=== PATIENT | female | born 1995 | race African-American/Black ===

== ENCOUNTER 2018-12-09 21:27 | Emergency (ER) | payer OTHER | END 2018-12-10 01:39 | disposition home or self-care (01) | LOC: JER 12-10 01:39 | PROC: 3E02329 Introduction of Other Anti-infective into Muscle, Percutaneous Approach (ICD-10-PCS; principal; 2018-12-09) | DX: O26.891 Other specified pregnancy related conditions, first trimester (principal); R10.30 Lower abdominal pain, unspecified; O99.011 Anemia complicating pregnancy, first trimester; Z3A.01 Less than 8 weeks gestation of pregnancy ==

== ENCOUNTER 2019-07-20 11:10 | Inpatient (IN) | payer OTHER ==
[2019-07-20] MEDS ORDERED: ELECTROLYTE-148 SOLN 500 ML IV ONE (12:00)
[2019-07-20] MEDS ORDERED: CITRIC ACID/SODIUM CITRATE 30 ML UNIT-DOSE CUP PO ONE (12:00)
[2019-07-20 12:03] LABS: BASO % 0.4 % (0-2.0); EOS % 0.7 % (0-4.5); HEMATOCRIT 35.8 % (32.4-45.2); HEMOGLOBIN 11.8 GM/dL (10.7-15.3); LYMPH % 18.9 % (8-40); MCHC 33.1 g/dl (32.0-36.0); MEAN CELL VOLUME 84.6 fl (80-96); MEAN PLT VOLUME 8.1 fl (7.5-11.1); MONO % 5.5 % (3.8-10.2); NEUT % 74.5 % (42.8-82.8); PLATELET COUNT 285 K/MM3 (134-434); RBC 4.23 M/mm3 (3.60-5.2); RDW 14.9 % (11.6-15.6); WHITE BLOOD COUNT 8.1 K/mm3 (4.0-10.0)
[2019-07-20 12:11] VITALS: BMI 31.9
[2019-07-20 12:20] LABS: INR 0.98 (0.83-1.09); PROTHROMBIN TIME (PATIENT) 11.6 SEC (9.7-13.0)
[2019-07-20 12:22] LABS: ACTIVATED PTT 31.4 SECONDS (25.2-36.5)
[2019-07-20 12:32] LABS: CALCIUM 8.9 mg/dL (8.5-10.1); CREATININE 0.8 mg/dL (0.55-1.3)
[2019-07-20] MEDS ORDERED: ELECTROLYTE-148 SOLN 1,000 ML IV SCH (13:00)
[2019-07-20] MEDS ORDERED: morphine SULFATE/PF 0.5 MG/ML (2cc Syringe - QUVA) ONE (13:21)
[2019-07-20] MEDS ORDERED: ePHEDrine SULFATE 50 MG/1 ML AMPULE ONE (13:23)
--- NOTE | 2019-07-20 13:33 | HP ---
<Zhang Hilario - Last Filed: 07/20/19 16:45> Past Medical History - Primary Care Physician PCP:: Estefany Mims MD - Admission Chief Complaint: Repeat section History of Present Illness: 24yo P2 admitted at 39w4d for repeat C section. History Source: Patient Limitations to Obtaining History: No Limitations - Past Medical History ...: 4 ...Para: 2 ...Term: 1 ...: 1 ...Spon : 0 ...Induced : 0 ...Multiple Gestation: 0 ...LMP: 10/16/18 ... Weeks Gestation by Dates: 39.4 ...EDC by Dates: 07/23/19 ...EDC by Sono: 07/28/19 - Past Surgical History Past Surgical History: Yes: Hx Myomectomy: No Hx Transabdominal Cerclage: No - Smoking History Smoking history: Never smoked Have you smoked in the past 12 months: No - Alcohol/Substance Use Hx Alcohol Use: No Home Medications - Allergies Allergies/Adverse Reactions: Allergies Allergy/AdvReac Type Severity Reaction Status Date / Time No Known Allergies Allergy Verified 07/20/19 11:56 - Home Medications Home Medications: Ambulatory Orders Prenat Vit 17/Iron/Folic/Om3,6 [Elite-Ob 400 Capsule] 1 each PO DAILY #30 capsule 12/10/18 Ferrous Sulfate 1 tab PO BID 07/04/19 Review of Systems - Review of Systems Constitutional: reports: No Symptoms Eyes: reports: No Symptoms Cardiovascular: reports: No Symptoms Respiratory: reports: No Symptoms Gastrointestinal: reports: No Symptoms Genitourinary: reports: No Symptoms Physical Exam - Maternity Vital Signs: Vital Signs Temperature 98.3 F 07/20/19 12:00 Pulse Rate 100 H 07/20/19 12:00 Respiratory Rate 20 07/20/19 12:00 Blood Pressure 114/57 L 07/20/19 12:00 O2 Sat by Pulse Oximetry (%) Constitutional: Yes: Well Nourished, No Distress Eyes: Yes: WNL HENT: Yes: WNL Cardiovascular: Yes: WNL Lungs: Clear to auscultation - Abdominal Exam/OB Fundal Height: 39 Number of Fetuses: Single Presentation: Vertex Contractions: No Accelerations: Uniform - Vaginal Exam/OB Vaginal Bleediing: No Speculum Exam: No Amniotic Membrane Status: Intact Amniotic Fluid: Yes: Clear Presentation: Vertex/Position Station: -2 - Physical Exam Musculoskeletal: Yes: WNL Extremities: Yes: WNL Integumentary: Yes: WNL - Labs Lab Results: GIL HERNANDEZ 07/20/19 11:50 07/20/19 11:50 Assessment/Plan 24 P admitted at 39.4 days for repeat C section heart 130 with moderate variability with no contractions <Haleigh Hightower - Last Filed: 07/20/19 17:48> Past Medical History - Past Medical History ...: 3 ...Term: 2 ...: 0 Additional OB History: previous C/S x2 Physical Exam - Maternity Vital Signs: Vital Signs Temperature 97.8 F 07/20/19 17:14 Pulse Rate 78 07/20/19 17:14 Respiratory Rate 18 07/20/19 17:14 Blood Pressure 114/71 07/20/19 17:14 O2 Sat by Pulse Oximetry (%) 100 07/20/19 16:30 - Labs Lab Results: GIL HERNANDEZ 07/20/19 11:50 07/20/19 11:50
[2019-07-20] MEDS ORDERED: OXYTOCIN 20 UNITS in 0.9% NS 20 UNIT/1,000 ML INFUS.BAG IV ONE (14:52)
[2019-07-20] MEDS ORDERED: OXYTOCIN 20 UNITS in 0.9% NS 1000 ML INFUS.BAG IV ONE (16:39)
[2019-07-20] MEDS ORDERED: diphenhydrAMINE HCL 25 MG CAPSULE (FP) PO PRN (16:40)
[2019-07-20] MEDS ORDERED: IBUPROFEN 800 MG/8 ML IJ IVPB PRN (16:40)
[2019-07-20] MEDS ORDERED: oxyCODONE HCL 5 MG TABLET PO PRN ×2 (16:40)
[2019-07-20] MEDS ORDERED: BENZOCAINE 28 GM HEMORRHOIDAL OINTMENT PR PRN (16:40)
[2019-07-20] MEDS ORDERED: SIMETHICONE 80 MG TAB.CHEW (FP) PO PRN (16:40)
[2019-07-20] MEDS ORDERED: METHYLERGONOVINE MALEATE 0.2 MG/1 ML AMP IM PRN (16:40)
[2019-07-20] MEDS ORDERED: BENZOCAINE 20% 57 GM BOTTLE TP PRN (16:40)
[2019-07-20] MEDS ORDERED: WITCH HAZEL 50% (TUCKS) 40 PAD/JAR PAD TP PRN (16:40)
[2019-07-20] MEDS ORDERED: OXYTOCIN 20 UNITS in 0.9% NS 20 UNIT/1,000 ML INFUS.BAG IV SCH (16:45)
[2019-07-20] MEDS ORDERED: DEXTROSE 5%-LACTATED RINGERS 1,000 ML IV SCH (16:45)
--- NOTE | 2019-07-20 17:57 | PN ---
Progress Note (short form) - Note Progress Note: 24 y old p2 admited at 39+4 w gestation for repeat C/S . previous C/S x2 , EFW 2800gm. + FM, no vaginal bleeding . no CTX . FHr 130/ min + Mod. variability . No uterine CTX D/W with the paqtient and her mother the plan of care with repeat C/S procedure explained ,risk and benefit explained . risk of bleeding , infection , pelvic or abdominal organs injuries explained consent obtained
--- NOTE | 2019-07-20 18:03 | OP ---
Operative Note - Note: Operative Date: 07/20/19 Pre-Operative Diagnosis: previous repeat C/S x2 at 39+4 w gestation for repeat C /S Operation: Repeat LTCS Findings: full term female infant 9/9 at 1 and 5 min in ANNA position . Ovary and tubes are grossely normal . EBL 600 ML . urine output 300 Ml clear Anesthesia: Spinal Estimated Blood Loss (mls): 600
[2019-07-20] MEDS: CEFAZOLIN 1 GM/D5W 1 GM/50 ML BAG IVPB SCH (18:11)
[2019-07-21] MEDS: CEFAZOLIN 1 GM/D5W 1 GM/50 ML BAG IVPB SCH (01:05)
[2019-07-21 09:17] LABS: BASO % 0.2 % (0-2.0); EOS % 0.3 % (0-4.5); HEMATOCRIT 31.9 % (32.4-45.2); HEMOGLOBIN 10.6 GM/dL (10.7-15.3); LYMPH % 7.5 % (8-40); MCH 28.2 pg (25.7-33.7); MCHC 33.2 g/dl (32.0-36.0); MEAN CELL VOLUME 84.9 fl (80-96); MEAN PLT VOLUME 8.1 fl (7.5-11.1); MONO % 6.1 % (3.8-10.2); NEUT % 85.9 % (42.8-82.8); PLATELET COUNT 212 K/MM3 (134-434); RBC 3.76 M/mm3 (3.60-5.2); RDW 14.9 % (11.6-15.6); WHITE BLOOD COUNT 15.8 K/mm3 (4.0-10.0)
--- NOTE | 2019-07-21 11:10 | PN ---
Progress Note (short form) - Note Progress Note: POD1 s/p C/s with spinal and DM. Pt reports minimal pain, and mild pruritus, but says it is tolerable. No DOWLING, no back pain, no other issues/comlications from anesthesia noted
--- NOTE | 2019-07-21 15:16 | PN ---
Progress Note (short form) - Note Progress Note: POD#1 repeat C/s . afebrile, ambulate + Flatus . No vaginal bleeding .mild lochia. incision intact , no bleeding , no discharge . no abdominal distension . no vaginal bleeding will cont . Po pain management . ambulate . wound care instructions given .
[2019-07-21] MEDS ORDERED: BISACODYL 10 MG SUPP.RECT PR PRN (16:40)
[2019-07-21] MEDS: IBUPROFEN 600 MG TABLET (FP) PO PRN (18:09)
--- NOTE | 2019-07-22 13:28 | OP ---
DATE OF OPERATION: 07/20/2019 INDICATIONS: Patient is 24-year-old 3, para 2, previous C section x2 admitted at 39 weeks and 4 days for repeat lower transverse section due to previous 2 section. Procedure explained. Risks and benefits explained. Risks of possible bleeding, infection, perforation, bowel injury, bladder injury, injury explained to the patient. Patient understood the risks and signed consent. SURGEON: Haleigh Hightower MD WOUND SPECIALIST: , PGY 3, family practice resident [facility], Dr. Holcomb , PGY 1, family [facility] ESTIMATED BLOOD LOSS: 600 mL. URINE OUTPUT: 300 mL clear. INTRAVENOUS FLUID GIVEN: 2100 normal saline. COMPLICATIONS: None. FINDINGS: Full-term female , Apgars 9 at one minute and 9 at five minutes in right occipital anterior position. Placenta and cord appeared grossly normal. Ovary and tubes bilaterally grossly normal. ANESTHESIA: Spinal anesthesia. Patient received Ancef preoperatively. PROCEDURE: Patient was taken to operating room under spinal anesthesia in dorsal position. Skin Pfannenstiel incision was made with a scalpel, carried down through the underlayer of fascia. Fascia was incised in the midline and extended bilaterally using Cullen scissors. The fascia was from underlying layer of muscle superiorly and inferiorly using Cullen scissors. Following that, the muscles and the peritoneum were entered bluntly, extended. Vesicouterine peritoneum was incised and extended bilaterally. Lower uterine segment was identified, incised, and extended bluntly laterally bilateral. Membrane was ruptured. Clear fluid. The head was delivered atraumatically. Mouth and nose were suctioned. The anterior shoulder was delivered followed by the whole body. The cord was clamped, cut, and the was handed to the awaiting general internist and physician leader. Cord gas was obtained. Cord blood was obtained. The placenta was delivered completely intact, spontaneous. The uterine cavity was cleared from all the debris and the bleeding. Lower uterine segment was closed in 2 layers using No. 1 Vicryl continuous locked fashion. Good hemostasis was obtained at the end of procedure at the end of closing of the uterine cavity. The fascia was closed using No. 1 Vicryl continuous fashion. The subcutaneous tissue was closed interrupted 0 plain, and the skin was closed using bia. Patient tolerated the procedure well. Transferred to recovery room in stable condition. HALEIGH HIGHTOWER MD [id number]
--- NOTE | 2019-07-22 14:13 | PN ---
Progress Note (short form) - Note Progress Note: POD #2 Afebrile No vaginal bleeding Tolerating diet Bowel movement Ambulating Exam: Abdomen: soft, non tender, non distended Incision: intact, no discharge or bleeding No vaginal bleeding Plan: -Continuous PO pain management -Wound care instructions given, keep the wound dry -Follow up in the [facility] for staple removal in one week
--- NOTE | 2019-07-22 15:08 | PN ---
Post Progress Note Type of Delivery: Repeat C/S Vital Signs: Vital Signs Temperature 97.2 F L 07/22/19 10:00 Pulse Rate 80 07/22/19 10:00 Respiratory Rate 20 07/22/19 10:00 Blood Pressure 101/61 07/22/19 10:00 O2 Sat by Pulse Oximetry (%) 100 07/20/19 16:30 Breast Exam: Yes: Soft Uterus: Yes: Fundus below umbilicus Incision: Yes: [place] intact Abdomen/GI: Yes: Abdomen soft, Tolerating PO Lochia, amount: Small Extremities: Yes: Calves non-tender Perineum: Yes: Intact Activity: Ambulating - Labs Labs: CBC WBC 15.8 K/mm3 (4.0-10.0) H 07/21/19 08:24 RBC 3.76 M/mm3 (3.60-5.2) 07/21/19 08:24 Hgb 10.6 GM/dL (10.7-15.3) L 07/21/19 08:24 Hct 31.9 % (32.4-45.2) L 07/21/19 08:24 MCV 84.9 fl (80-96) 07/21/19 08:24 MCH 28.2 pg (25.7-33.7) 07/21/19 08:24 MCHC 33.2 g/dl (32.0-36.0) 07/21/19 08:24 RDW 14.9 % (11.6-15.6) 07/21/19 08:24 Plt Count 212 K/MM3 (134-434) D 07/21/19 08:24 MPV 8.1 fl (7.5-11.1) 07/21/19 08:24 Absolute Neuts (auto) 13.6 K/mm3 (1.5-8.0) H 07/21/19 08:24 Neutrophils % 85.9 % (42.8-82.8) H 07/21/19 08:24 Lymphocytes % 7.5 % (8-40) L D 07/21/19 08:24 Monocytes % 6.1 % (3.8-10.2) 07/21/19 08:24 Eosinophils % 0.3 % (0-4.5) 07/21/19 08:24 Basophils % 0.2 % (0-2.0) 07/21/19 08:24 Nucleated RBC % 0 % (0-0) 07/21/19 08:24
[2019-07-22] MEDS: IBUPROFEN 600 MG TABLET (FP) PO PRN (18:03)
[2019-07-22] MEDS ORDERED: SENNOSIDES/DOCUSATE COMBO (SENNA PLUS) TABLET (UD) PO PRN (22:00)
[2019-07-23 07:34] LABS: BASO % 0.5 % (0-2.0); EOS % 3.8 % (0-4.5); HEMATOCRIT 27.1 % (32.4-45.2); LYMPH % 26.8 % (8-40); MCH 28.4 pg (25.7-33.7); MCHC 33.3 g/dl (32.0-36.0); MEAN CELL VOLUME 85.2 fl (80-96); MONO % 6.4 % (3.8-10.2); NEUT % 62.5 % (42.8-82.8); PLATELET COUNT 223 K/MM3 (134-434); RBC 3.18 M/mm3 (3.60-5.2); RDW 14.6 % (11.6-15.6); WHITE BLOOD COUNT 8.8 K/mm3 (4.0-10.0)
[2019-07-23 10:22] VITALS: BP 108/70; PULSE 79; TEMP 97.5
--- NOTE | 2019-07-23 12:13 | DS ---
DATE OF ADMISSION: 07/20/2019 DATE OF DISCHARGE: DATE OF DICTATION: 07/22/2019 Patient is a 24-year-old, 3, para 2, admitted at 39 weeks and 4 days for repeat low transverse . Patient previously had 2 sections. Patient reported good movement, no bleeding, no discharge. Repeat, elective, low transverse discussed with the patient. Patient signed consent. Status post repeat low transverse on July 20. No complications. Full-term female infant, Apgars 9 and 9, was delivered in right occipital anterior position. Postoperatively, no bleeding, no vaginal bleeding, no abdominal pain. She had bowel movement. Mild lochia. Tolerated diet. Ambulated. On the exam, the incision intact. No discharge. No bleeding. Abdomen: Soft, nontender. No distention. Good bowel sounds. Mild lochia vaginally. Patient will be discharged and follow up in [facility] for staple removal. Wound care instructions given. Keep the wound dry. Patient also instructed to avoid constipation, using stool softener, instructed to ambulate. Also, patient instructed in case of fever, pain, bleeding, report to the emergency room for further evaluation and management. MD RICHARD DILLARD/[id number]
--- NOTE | 2019-07-25 10:57 | PATH ---
Surgical Pathology Report Patient Name: GAY BERGMAN Med. Rec. #: [id number] /Age/Gender: 1995 (Age: 24) / F Account: [id number] Location: [facility] OBS/CLAIM PROFESSIONAL Taken: 07/20/2019 Received: 07/21/2019 Reported: 07/25/2019 Physicians: AGUSTIN MAJANO Specimen(s) Received PLACENTA Clinical History at 39.4 weeks Final Diagnosis PLACENTA, DELIVERY: SMALL (271 GRAM) THIRD TRIMESTER PLACENTA WITH 3 VESSEL UMBILICAL CORD AND UNREMARKABLE MEMBRANES. Electronically Signed Carlton Montes M.D. Gross Description The specimen is received fresh labeled placenta and is a 271 gram, 12.5 x 12.0 x 2.8 cm. placenta with attached membranes and umbilical cord. The attached membranes are hickman, thick, cloudy and insert marginally. The umbilical cord measures 7.5 cm. in length and averages 1.1 cm. in diameter. The cord inserts eccentrically, 3 cm. to the nearest margin. No true knots or strictures are identified. Cut surface of the umbilical cord reveals 3 vessels. The surface is montero-blue with minimal fibrin deposition and appropriate caliber vessels. The maternal surface is red-brown and intact. Sectioning reveals red-brown, spongy parenchyma. No lesions are identified. [employer] sections are submitted in three cassettes as follows: 1- membrane rolls and umbilical cord; 2-3- full thickness sections of placenta. /07/22/2019 saudi/07/22/2019
== END 2019-07-23 13:50 | disposition home or self-care (01) | DRG 540 ==
LOC: JLDR 11:10 → J3W 17:00
PROVIDERS: ADMIT Family Medicine; ATTEND Family Medicine
PROC: 10D00Z1 Extraction of Products of Conception, Low, Open Approach (ICD-10-PCS; principal; 2019-07-20)
DX: O34.219 Maternal care for unspecified type scar from previous cesarean delivery (principal); Z3A.39 39 weeks gestation of pregnancy; Z37.0 Single live birth
CPT/HCPCS: 36415; 36600; 80048; 82803; 85025; 85610; 85730; 86593; 86850; 86900; 86901; 87389; 88307-TC

== ENCOUNTER 2020-10-16 12:05 | Inpatient (IN) | payer OTHER ==
[2020-10-16 13:21] VITALS: BMI 35.5
[2020-10-16] MEDS ORDERED: ELECTROLYTE-148 SOLN 500 ML IV ONE (13:21)
[2020-10-16] MEDS ORDERED: CITRIC ACID/SODIUM CITRATE 30 ML UNIT-DOSE CUP PO ONE (13:22)
[2020-10-16] MEDS ORDERED: OXYTOCIN 20 UNITS in 0.9% NS 20 UNIT/1,000 ML INFUS.BAG IV ONE (13:58)
[2020-10-16] MEDS ORDERED: PHENYLEPHRINE HCL 10 MG/1 ML SINGLE DOSE VIAL ONE (14:01)
[2020-10-16] MEDS ORDERED: morphine SULFATE/PF 0.5 MG/ML (2cc Syringe - QUVA) ONE (14:01)
[2020-10-16] MEDS ORDERED: ePHEDrine SULFATE 50 MG/1 ML AMPULE ONE (14:02)
[2020-10-16] MEDS ORDERED: ELECTROLYTE-148 SOLN 1,000 ML IV SCH (14:20)
[2020-10-16 14:53] LABS: URINE AMPHETAMINES NEGATIVE ng/ml (CUTOFF=500)
[2020-10-16 14:54] LABS: COCAINE, UR NEGATIVE ng/ml (CUTOFF=300); METHADONE, UR NEGATIVE ng/ml (CUTOFF=300); OPIATES, URI NEGATIVE ng/ml (CUTOFF=300); PHENCYCLIDINE,URINE NEGATIVE ng/ml (CUTOFF=25); URINE BARBITURATES NEGATIVE ng/ml (CUTOFF=200)
[2020-10-16 14:57] LABS: URINE BENZODIAZEPINES NEGATIVE ng/ml (CUTOFF=200)
[2020-10-16] MEDS ORDERED: BENZOCAINE 20% 57 GM BOTTLE TP PRN (16:03)
[2020-10-16] MEDS ORDERED: SENNOSIDES/DOCUSATE COMBO (SENNA PLUS) TABLET (UD) PO PRN (16:03)
[2020-10-16] MEDS ORDERED: METHYLERGONOVINE MALEATE 0.2 MG/1 ML AMP IM PRN (16:03)
[2020-10-16] MEDS ORDERED: IBUPROFEN 800 MG/8 ML IJ IVPB PRN (16:03)
[2020-10-16] MEDS ORDERED: WITCH HAZEL 50% (TUCKS) 40 PAD/JAR PAD TP PRN (16:03)
[2020-10-16] MEDS ORDERED: oxyCODONE HCL 5 MG TABLET PO PRN (16:03)
[2020-10-16] MEDS ORDERED: BENZOCAINE 28 GM HEMORRHOIDAL OINTMENT TP PRN (16:03)
[2020-10-16] MEDS ORDERED: OXYTOCIN 20 UNITS in 0.9% NS 20 UNIT/1,000 ML INFUS.BAG IV SCH (16:15)
[2020-10-16] MEDS ORDERED: IBUPROFEN 800 MG/8 ML IJ IVPB ONE (16:55)
[2020-10-16] MEDS ORDERED: ONDANSETRON 4 MG/2 ML VIAL IVPUSH PRN (16:57)
[2020-10-16] MEDS ORDERED: morphine SULFATE/PF 0.5 MG/ML (2cc Syringe - QUVA) EP ONE (16:57)
[2020-10-16] MEDS: FERROUS SO4 325 MG TABLET (FP) PO SCH (21:22)
[2020-10-17 07:51] LABS: BASO % 0.3 % (0-2.0); EOS % 1.8 % (0-4.5); HEMOGLOBIN 8.3 GM/dL (10.7-15.3); MCH 25.7 pg (25.7-33.7); MCHC 33.1 g/dl (32.0-36.0); MEAN CELL VOLUME 77.9 fl (80-96); MEAN PLT VOLUME 7.8 fl (7.5-11.1); MONO % 8.9 % (3.8-10.2); PLATELET COUNT 212 K/MM3 (134-434); RBC 3.22 M/mm3 (3.60-5.2); RDW 15.9 % (11.6-15.6); WHITE BLOOD COUNT 10.9 K/mm3 (4.0-10.0)
[2020-10-17] MEDS: ACETAMINOPHEN 325 MG TABLET (FP) PO PRN ×2 (10:37→22:18)
[2020-10-17] MEDS: PRENATAL VITAMINS W/ FOLIC ACID TABLET (FP) PO SCH (10:37)
[2020-10-17] MEDS: FERROUS SO4 325 MG TABLET (FP) PO SCH ×2 (10:37→21:29)
[2020-10-17] MEDS: IBUPROFEN 600 MG TABLET (FP) PO PRN ×2 (10:38→22:17)
[2020-10-17] MEDS: SIMETHICONE 80 MG TAB.CHEW (FP) PO PRN ×2 (10:38→22:17)
[2020-10-17] MEDS ORDERED: BISACODYL 10 MG SUPP.RECT RC PRN (16:03)
[2020-10-18] MEDS: PRENATAL VITAMINS W/ FOLIC ACID TABLET (FP) PO SCH (11:10)
[2020-10-18] MEDS: FERROUS SO4 325 MG TABLET (FP) PO SCH (11:10)
[2020-10-18 13:50] VITALS: BP 98/61; PULSE 75; TEMP 97.8
== END 2020-10-18 14:35 | disposition home or self-care (01) | DRG 540 ==
LOC: JLDR 12:05 → J3W 17:45
PROVIDERS: ADMIT Obstetrics & Gynecology; ATTEND Obstetrics & Gynecology
PROC: 10D00Z1 Extraction of Products of Conception, Low, Open Approach (ICD-10-PCS; principal; 2020-10-16)
PROC: 0UL70ZZ Occlusion of Bilateral Fallopian Tubes, Open Approach (ICD-10-PCS; 2020-10-16)
PROC: 0U9MXZZ Drainage of Vulva, External Approach (ICD-10-PCS; 2020-10-16)
DX: O34.219 Maternal care for unspecified type scar from previous cesarean delivery (principal); Z30.2 Encounter for sterilization; N90.7 Vulvar cyst; Z3A.39 39 weeks gestation of pregnancy; Z37.0 Single live birth
CPT/HCPCS: 36415; 80053; 80307; 85025; 85610; 86780; 86850; 86900; 86901; 88302-TC; 88307-TC; C9803; U0003; U0005